=== PATIENT | female | born 1985 | race Caucasian/White ===

== ENCOUNTER 2017-02-26 05:00 | Inpatient (IN) | payer OTHER ==
[2017-02-26] MEDS ORDERED: Calcium Carbonate CHEW TAB* 500 MG (TUMS) PO PRN (07:42)
[2017-02-26] MEDS ORDERED: Nalbuphine* 20 MG/ML 1 ML VIAL IM ONE (11:52)
[2017-02-26] MEDS ORDERED: Promethazine INJ(RESTRICTED)* 25 MG/ML 1 ML VIAL ONE (11:52)
[2017-02-26] MEDS ORDERED: Promethazine INJ(RESTRICTED)* 25 MG/ML 1 ML VIAL IM PRN (11:53)
[2017-02-26] MEDS ORDERED: Nalbuphine* 20 MG/ML 1 ML VIAL ONE (11:55)
[2017-02-26] MEDS ORDERED: OBEPIDURAL* 250 ML ONE (16:40)
[2017-02-26 16:41] LABS: Hematocrit 36 % (35-47); Hemoglobin 11.9 g/dl (12.0-16.0); Mean Corpuscular HGB Conc 33 g/dl (31-36); Mean Corpuscular Hemoglobin 31 pg (27-31); Mean Corpuscular Volume 94 fL (80-97); Mean Platelet Volume 9 um3 (7.4-10.4); Red Blood Count 3.79 10^6/ul (4.0-5.4); Red Cell Distribution Width 14 % (10.5-15); White Blood Count 21.7 10^3/ul (3.5-10.8)
[2017-02-26 16:44] LABS: Add Diff/Slide Review? Slide Review Added; Comments Flag Yes
[2017-02-26] MEDS ORDERED: Oxytocin in LR* 20 UNITS/1,000 ML BAG IVPB SCH (17:00)
[2017-02-26] MEDS ORDERED: Sodium Citrate/Citric Acid* 15 ML UDC PO PRN (17:30)
[2017-02-26] MEDS ORDERED: Phenylephrine IV* 40 MCG/ML 10 ML SYRINGE IV PUSH PRN ×2 (17:30)
[2017-02-26] MEDS ORDERED: Famotidine TAB* 20 MG PO PRN (17:30)
[2017-02-26 18:12] LABS: Immature Granulocytes 2 % (0-9); Metamyelocytes % 1 % (0-2); Myelocytes % 1 % (0-1); Neutrophil % 89 % (38-83)
[2017-02-27] MEDS ORDERED: ceFOXitin 2 GM IVPREMIX* 2 GM/50 ML BAG ONE (04:11)
[2017-02-27] MEDS ORDERED: ceFOXitin 2 GM IVPREMIX* 2 GM/50 ML BAG IVPB ONE (04:13)
[2017-02-27] MEDS ORDERED: Glycerin ADULT SUPP PR PRN (04:14)
[2017-02-27] MEDS ORDERED: Witch Hazel PAD* JAR TOPICAL PRN (04:14)
[2017-02-27] MEDS ORDERED: Dibucaine 1% 28.35 GM TUBE PR PRN (04:14)
[2017-02-27] MEDS ORDERED: Lidocaine 2% EPI 1:200000 MPF* 20 ML VIAL ONE (04:28)
[2017-02-27] MEDS ORDERED: fentaNYL* 50 MCG/ML 2 ML VIAL (100 MCG VIAL) ONE (04:28)
[2017-02-27] MEDS ORDERED: Sodium Bicarbonate 8.4% IV* 50 ML VIAL ONE (04:28)
[2017-02-27] MEDS ORDERED: Oxytocin in LR* 20 UNITS/1,000 ML BAG IVPB SCH (05:00)
[2017-02-27] MEDS ORDERED: Morphine PF AMP (0.5MG/ML)* 5 MG/10 ML AMP ONE (05:00)
[2017-02-27] MEDS ORDERED: DiMENhydriNATE IV* 50 MG/ML VIAL IV PUSH PRN (05:13)
[2017-02-27] MEDS ORDERED: oxyCODONE TAB* 5 MG TAB PO PRN (05:13)
[2017-02-27] MEDS ORDERED: Acetaminophen TAB* 325 MG PO PRN ×2 (05:13→21:00)
[2017-02-27] MEDS ORDERED: HYDROmorphone* 1 MG/ML 1 ML SYR IV PRN (05:13)
[2017-02-27] MEDS ORDERED: Metoclopramide IV* 5 MG/ML 2 ML VIAL IV PRN (05:13)
[2017-02-27] MEDS ORDERED: Ondansetron INJ* 2 MG/ML VIAL IV PRN (05:13)
[2017-02-27] MEDS ORDERED: fentaNYL* 50 MCG/ML 2 ML VIAL (100 MCG VIAL) IV PRN (05:13)
[2017-02-27] MEDS ORDERED: Naloxone* 0.4 MG/ML 1 ML VIAL IV PRN (05:13)
[2017-02-27] MEDS ORDERED: OXYTOCIN* 10 UNITS/ML 1 ML VIAL ONE ×2 (05:25)
[2017-02-27] MEDS ORDERED: Phenylephrine IV* 40 MCG/ML 10 ML SYRINGE ONE (05:32)
[2017-02-27] MEDS ORDERED: Ondansetron INJ* 2 MG/ML VIAL ONE (05:33)
[2017-02-27] MEDS: Ibuprofen TAB* 600 MG PO PRN ×3 (07:56→20:48)
[2017-02-27] MEDS: Docusate CAP* 100 MG PO SCH ×3 (09:27→20:47)
[2017-02-27] MEDS: Simethicone CHEW TAB* 80 MG PO SCH ×4 (09:27→20:47)
[2017-02-27] MEDS: OBEPIDURAL* 250 ML EPIDURAL SCH (20:45)
[2017-02-27] MEDS ORDERED: oxyCODONE/Acetamin 5/325 MG* TAB PO PRN (21:00)
--- NOTE | 2017-02-27 23:53 | OP ---
DATE OF OPERATION: 02/27/17 - ROOM #[id number]-116 DATE OF : 83 SURGEON: Nikki Laird MD GEOLOGICAL E LOGGER: Gretchen Cortez CM ANESTHESIOLOGIST: Sara Ashton MD ANESTHESIA: Epidural PRE-OP DIAGNOSIS: Arrest of dilation, arrest of descent, category II tracing 40 and 2/7th week intrauterine . POST-OP DIAGNOSIS: Arrest of dilation, arrest of descent, category II tracing 40 and 2/7th week intrauterine , delivered. OPERATIVE PROCEDURE: Primary low transverse section. ESTIMATED BLOOD LOSS: 600 cc. URINE OUTPUT: 300 cc of clear yellow urine. FLUIDS: 2000 cc of crystalloid. FINDINGS: Revealed a vertex left occiput anterior female with Apgars 9 at 1 minute and 9 at 5 minutes, weight was 7 pounds 13 ounces. No nuchal cord. No meconium. Normal appearing tubes and ovaries bilaterally. Normal uterine cavity without evidence of retained membranes or placental tissue. Normal appearing placenta, three-vessel cord manually extracted and intact. COMPLICATIONS: None apparent. DISPOSITION: Stable to recovery room. DESCRIPTION OF PROCEDURE: The patient was placed in dorsal lithotomy position. The abdomen was prepped and draped in sterile standard fashion. The patient was identified with universal protocol. After testing on anesthesia for appropriate level of anesthesia, an incision was made 2 fingerbreadths above the pubic symphysis. This was carried down with a scalpel to the fascia. Fascia was scored in the midline, extended laterally and superiorly using Henderson scissors and from the rectus muscle superiorly and inferiorly with blunt and sharp dissection. The peritoneum was then entered bluntly. Bladder blade was inserted. Lower uterine segment was identified, tented up with Allis. An incision was made in the lower uterine segment with a scalpel. This was carried down through to the membranes. The incision was extended laterally and superiorly using bandage scissors. The baby was delivered CURTIS. No nuchal cord was noted. No meconium. Cord was allowed to delay in clamping by greater than 30 seconds. The cord was then clamped and cut and then was handed off to the awaiting laborer steel handling. Appropriate cord blood was obtained. The patient is Rh negative. The placenta was then manually extracted and noted to be intact and had three-vessel cords. The uterus was exteriorized, wrapped in warm moist laparotomy sponges. Tubes and ovaries were noted to have a normal appearance. The cavity was wiped clean and noted to be free of any placental tissue or membranes. The uterine incision itself was then reapproximated using 0 Vicryl x2, first layer of running locked, second layer of running imbricated. Uterus was returned intraabdominally. Colic gutters were lavaged. Hemostasis was assured at the hysterotomy site. The peritoneum was then reapproximated using 3-0 Vicryl in a running fashion. The subfascial area was visualized, hemostasis assured and the fascia itself was reapproximated using 0 Vicryl x2 in a running fashion. Subcu was lavaged. Hemostasis assured with Bovie coagulation. The skin was then reapproximated with 4-0 Monocryl in a subcuticular fashion. Mastisol and Steri-Strips were applied. All sponge, instruments, and blade counts were correct throughout the case. The patient tolerated the procedure well and went to recovery room in stable condition. [id number]/[facility] #: [id number] [facility]PITALAnnamaria
[2017-02-28] MEDS: Ibuprofen TAB* 600 MG PO PRN ×4 (03:51→21:31)
[2017-02-28 07:04] LABS: Hematocrit 30 % (35-47); Mean Corpuscular HGB Conc 33 g/dl (31-36); Mean Corpuscular Hemoglobin 31 pg (27-31); Mean Corpuscular Volume 94 fL (80-97); Mean Platelet Volume 8 um3 (7.4-10.4); Red Blood Count 3.21 10^6/ul (4.0-5.4); Red Cell Distribution Width 14 % (10.5-15); White Blood Count 27.3 10^3/ul (3.5-10.8)
[2017-02-28 07:14] LABS: Add Diff/Slide Review? Slide Review Added; Comments Flag Yes
[2017-02-28] MEDS ORDERED: Ferrous Gluconate TAB* 324 MG TAB PO SCH (09:00)
[2017-02-28] MEDS: Docusate CAP* 100 MG PO SCH ×3 (09:55→21:31)
[2017-02-28] MEDS: Simethicone CHEW TAB* 80 MG PO SCH ×4 (09:55→21:31)
[2017-02-28] MEDS ORDERED: RHO D Immune Globulin (HUMAN)* 300 MCG = 1,500 I.U. INJ IM ONE (10:45)
[2017-03-01] MEDS: oxyCODONE/Acetamin 5/325 MG* TAB PO PRN ×2 (00:31→18:26)
[2017-03-01] MEDS: Ibuprofen TAB* 600 MG PO PRN ×4 (03:20→22:50)
[2017-03-01] MEDS: Docusate CAP* 100 MG PO SCH ×3 (07:27→22:50)
[2017-03-01] MEDS: Simethicone CHEW TAB* 80 MG PO SCH ×4 (07:27→22:50)
[2017-03-02] MEDS: Ibuprofen TAB* 600 MG PO PRN (04:50)
[2017-03-02] MEDS: OBEPIDURAL* 250 ML EPIDURAL SCH (08:06)
[2017-03-02 08:20] VITALS: BP 114/71
[2017-03-02] MEDS: Docusate CAP* 100 MG PO SCH (08:25)
[2017-03-02] MEDS: Simethicone CHEW TAB* 80 MG PO SCH (08:25)
== END 2017-03-02 10:46 | disposition home or self-care (01) | DRG 766 ==
LOC: MCHOBOUT 05:00 → MCHOB 07:36
PROVIDERS: ADMIT Midwife; ATTEND Obstetrics & Gynecology
PROC: 10907ZC Drainage of Amniotic Fluid, Therapeutic from Products of Conception, Via Natural or Artificial Opening (ICD-10-PCS; 2017-02-27)
PROC: 10D00Z1 Extraction of Products of Conception, Low, Open Approach (ICD-10-PCS; principal; 2017-02-27 04:29)
DX: O62.0 Primary inadequate contractions (principal); O76 Abnormality in fetal heart rate and rhythm complicating labor and delivery; O62.1 Secondary uterine inertia; Z3A.40 40 weeks gestation of pregnancy; Z37.0 Single live birth
CPT/HCPCS: 36415; 85025; 85461; 86850; 86900; 86901; A9270-GY; J0694; J2300; J2310; J2405; J2550; J2590; J2790; J3010

== ENCOUNTER 2018-10-01 06:02 | Inpatient (IN) | payer OTHER ==
[~2018-10-01 06:02] MED LIST: Buffered Lidocaine 0.9% SYRIN* 5 ML/SYR SYRINGE INTRADERM ONE; Gentamicin ADULT (*) 150 MG in NS 0.9% 100 ML* 100 ML IVPB SCH; Sodium Citrate/Citric Acid* 15 ML UDC PO ONE
[2018-10-01] MEDS ORDERED: OXYTOCIN* 10 UNITS/ML 1 ML VIAL ONE (07:33)
[2018-10-01] MEDS ORDERED: Lidocaine 2% PF * 5 ML VIAL ONE (07:33)
[2018-10-01] MEDS ORDERED: Bupivacaine-MPF SPINAL* 7.5 MG/ML - 2ML AMP ONE (07:34)
[2018-10-01] MEDS ORDERED: Morphine PF AMP (0.5MG/ML)* 5 MG/10 ML AMP ONE (07:34)
[2018-10-01] MEDS ORDERED: Clindamycin 900 MG/D5W BAG(*) 900 MG/50 ML BAG IVPB ONE (08:00)
[2018-10-01] MEDS ORDERED: Famotidine IV* 10 MG/ML 2 ML (20 mg) ONE (08:11)
[2018-10-01] MEDS ORDERED: Ondansetron INJ* 2 MG/ML VIAL ONE (08:15)
[2018-10-01] MEDS ORDERED: Ketorolac INJ* 30 MG/ML 1 ML VIAL ONE (08:35)
[2018-10-01] MEDS ORDERED: Dibucaine 1% 28.35 GM TUBE PR PRN (08:42)
[2018-10-01] MEDS ORDERED: Glycerin ADULT SUPP PR PRN (08:42)
[2018-10-01] MEDS ORDERED: Zolpidem TAB* 5 MG PO PRN (08:42)
[2018-10-01] MEDS ORDERED: Witch Hazel PAD* JAR TOPICAL PRN (08:42)
[2018-10-01] MEDS ORDERED: RHO D Immune Globulin (HUMAN)* 300 MCG = 1,500 I.U. INJ IM ONE (08:42)
[2018-10-01] MEDS ORDERED: oxyCODONE/Acetamin 5/325 MG* TAB PO PRN ×4 (08:42→09:11)
[2018-10-01] MEDS ORDERED: Oxytocin in LR* 20 UNITS/1,000 ML BAG IVPB SCH (09:00)
[2018-10-01] MEDS ORDERED: fentaNYL* 50 MCG/ML 2 ML VIAL (100 MCG VIAL) IV PRN (09:10)
[2018-10-01] MEDS ORDERED: Naloxone* 0.4 MG/ML 1 ML VIAL IV PRN ×2 (09:10→09:11)
[2018-10-01] MEDS ORDERED: Scopolamine 1.5 mg* PATCH TRANSDERM PRN (09:11)
[2018-10-01] MEDS ORDERED: PROCHLORPERAZINE INJ 5 MG/ML 2 ML VIAL IV PRN (09:11)
[2018-10-01] MEDS ORDERED: Ketorolac INJ* 30 MG/ML 1 ML VIAL IV PRN (09:11)
[2018-10-01] MEDS ORDERED: Ondansetron INJ* 2 MG/ML VIAL IV PRN (09:11)
[2018-10-01] MEDS ORDERED: Acetaminophen TAB* 325 MG PO PRN (09:11)
[2018-10-01] MEDS ORDERED: DiMENhydriNATE IV* 50 MG/ML VIAL IV PUSH PRN (09:11)
[2018-10-01] MEDS: Docusate CAP* 100 MG PO SCH ×3 (11:37→20:28)
[2018-10-01] MEDS: Simethicone TAB* 80 MG TAB.CHEW PO SCH ×3 (12:20→20:28)
[2018-10-01] MEDS: diPHENhydraMINE IV* 50 MG/ML 1 ml VIAL (BENADRYL) IV PRN ×2 (12:49→20:28)
[2018-10-02] MEDS ORDERED: Zolpidem TAB* 5 MG PO PRN (01:20)
[2018-10-02] MEDS ORDERED: oxyCODONE/Acetamin 5/325 MG* TAB PO PRN (01:20)
[2018-10-02] MEDS: oxyCODONE/Acetamin 5/325 MG* TAB PO PRN ×2 (04:33→19:57)
[2018-10-02 06:45] LABS: ABS Basophils 0 10^3/ul (0-0.2); ABS Eosinophils 0.1 10^3/ul (0-0.6); ABS Monocytes 0.7 10^3/ul (0-0.8); ABS Neutrophils 12.3 10^3/ul (1.5-7.7); ABS Nucleated RBC 0 10^3/ul; Eosinophil % 0.5 % (0-6); Hematocrit 30 % (35-47); Hemoglobin 10.2 g/dl (12.0-16.0); Mean Corpuscular HGB Conc 34 g/dl (31-36); Mean Corpuscular Hemoglobin 29 pg (27-31); Mean Corpuscular Volume 86 fL (80-97); Mean Platelet Volume 8.5 fL (7.4-10.4); Nucleated Red Blood Cells % 0; Platelet Count 149 10^3/ul (150-450); Red Blood Count 3.48 10^6/ul (4.00-5.40); Red Cell Distribution Width 13 % (10.5-15); White Blood Count 15.1 10^3/ul (3.5-10.8)
[2018-10-02] MEDS: Ibuprofen TAB* 600 MG PO PRN ×2 (07:05→13:05)
[2018-10-02] MEDS: Docusate CAP* 100 MG PO SCH ×3 (08:59→19:57)
[2018-10-02] MEDS ORDERED: Ferrous Gluconate TAB* 324 MG TAB PO SCH (09:00)
[2018-10-02] MEDS: Simethicone TAB* 80 MG TAB.CHEW PO SCH ×4 (09:00→19:57)
--- NOTE | 2018-10-02 14:12 | OP ---
DATE OF OPERATION: 10/01/18 - ROOM #116 DATE OF : 83 SURGEON: Nikki Laird MD. WIRE ROLLER: Camilla Jimenez CNM. ANESTHESIOLOGIST: Dr. Rosa. ANESTHESIA: Spinal. PRE-OP DIAGNOSIS: Intrauterine 39 weeks, desires repeat section. POST-OP DIAGNOSIS: Intrauterine 39 weeks, desires repeat section, delivered. OPERATIVE PROCEDURE: Repeat low transverse section. ESTIMATED BLOOD LOSS: 500 cc. URINE OUTPUT: 150 cc of clear yellow urine. FLUIDS: 1600 cc of crystalloid. FINDINGS: Revealed a vertex male infant with Apgars 8 at one minute and 9 at five minutes. Weight was 7 pounds 12 ounces. Normal appearing placenta, manually extracted. Three-vessel cord intact. Normal appearing tubes and ovaries bilaterally. No evidence of adhesions. COMPLICATIONS: None apparent. DISPOSITION: Stable to recovery room. DESCRIPTION OF PROCEDURE: The patient was placed in dorsal lithotomy position. Abdomen was prepped and draped in a sterile standard fashion. Anesthesia was tested to appropriate level. An incision was made with scalpel through a prior incisional site. This was carried down through the fascia. The fascia was scored in the midline, extended laterally and superiorly using Henderson scissors. The fascia actually was sharply and bluntly from the rectus muscle superiorly and inferiorly. The peritoneum was then entered bluntly. The peritoneal incision was extended bluntly. Bladder blade was inserted. Lower uterine segment was identified. Allis was used to tent up on the lower uterine segment. Incision was made with a scalpel down to membrane. This incision was extended laterally and superiorly using bandage scissors. Amniotomy was created for clear fluid. was delivered vertex. Nuchal cord x1 reduced. Anterior and posterior shoulders delivered. Cord was allowed to pulse for a minute. Cord was then clamped, cut, and infant was handed off to awaiting neonatology, Dr. Levine. Appropriate cord blood was obtained. Placenta was then manually extracted, noted to be intact 3- vessel cord with normal appearance. The uterus was exteriorized. Cavity was wiped clean, noted to be free of any membranes or placental tissue. The incision itself was clamped with T-clamps, and the incision was reapproximated using 0 Vicryl x2 first layer running locked, second layer running imbricated. Uterus was returned intraabdominally. Colic gutters were lavaged. Hemostasis was assured at the hysterotomy site. The peritoneum was clamped with Kellys x3 and the peritoneum was then reapproximated using 3-0 Vicryl in a running fashion. Subfascial area was visualized and noted to be hemostatic. The fascia itself was then reapproximated using 0 Vicryl x2 in a running fashion. The subcu was lavaged. Hemostasis was assured. The subcu Camper's fascia was noted to be less than 2 cm. The skin was then reapproximated using 4-0 Monocryl in a subcuticular fashion. Mastisol and Steris were applied. All sponges, instrument, and blade counts were correct through the case. The patient tolerated the procedure well and went to recovery room in stable condition. [id number]/[facility] [place] #: [id number] MTDD
[2018-10-02] MEDS: Acetaminophen TAB* 325 MG PO PRN (14:25)
[2018-10-03] MEDS: oxyCODONE/Acetamin 5/325 MG* TAB PO PRN ×2 (00:09→04:17)
[2018-10-03] MEDS: Ibuprofen TAB* 600 MG PO PRN ×2 (00:09→07:59)
[2018-10-03 07:59] VITALS: BP 116/62
[2018-10-03] MEDS: Simethicone TAB* 80 MG TAB.CHEW PO SCH (07:59)
[2018-10-03] MEDS: Docusate CAP* 100 MG PO SCH (07:59)
[2018-10-03] MEDS: Acetaminophen TAB* 325 MG PO PRN (10:30)
[2018-10-04] MEDS ORDERED: Scopolamine PATCH Remove* 1 NOTE MISC PATCH OFF PRN (09:12)
== END 2018-10-03 14:32 | disposition home or self-care (01) | DRG 788 ==
LOC: MCHOB 06:02
PROVIDERS: ADMIT Obstetrics & Gynecology; ATTEND Obstetrics & Gynecology
PROC: 4A1HXCZ Monitoring of Products of Conception, Cardiac Rate, External Approach (ICD-10-PCS; 2018-10-01)
PROC: 10D00Z1 Extraction of Products of Conception, Low, Open Approach (ICD-10-PCS; principal; 2018-10-01 07:45)
DX: O34.211 Maternal care for low transverse scar from previous cesarean delivery (principal); Z88.0 Allergy status to penicillin; Z3A.39 39 weeks gestation of pregnancy; Z37.0 Single live birth; O69.81X0 Labor and delivery complicated by cord around neck, without compression, not applicable or unspecified
CPT/HCPCS: 36415; 85025; 85461; 86900; 86901; A9270-GY; J1200; J1580; J1885; J2405; J2590; J2790